=== PATIENT | female | born 2000 ===

== ENCOUNTER 2025-02-13 19:06 | Emergency (ER) | payer SELFPAY ==
[2025-02-13 19:09] VITALS: BP 146/102; PULSE 85; RESP 18; TEMP 37; O2SAT 100
--- NOTE | 2025-02-13 19:17 | PC.NURSE ---
Pt and visitor are ambulatory to triage desk with steady gait stating they are going to go to [place] instead per cosmetics counter manager Charla. Pt walked out before being seen by provider.
== END 2025-02-13 19:17 | disposition left against medical advice (07) ==
DX: R11.2 Nausea with vomiting, unspecified (principal)
CPT/HCPCS: 99199

== ENCOUNTER 2025-02-13 19:52 | Emergency (ER) | payer OTHER, SELFPAY ==
[2025-02-13 19:56] VITALS: BP 118/104; PULSE 80; RESP 20; TEMP 36.5; O2SAT 100
[2025-02-13] MEDS: LORazepam INJ (*CRX) 2 MG/ML VIAL 1 MG IV PUSH (20:12)
[2025-02-13] MEDS: diphenhydrAMINE HCl INJ 50 MG/ML VIAL IV PUSH (20:12)
[2025-02-13] MEDS: METOCLOPRAMIDE HCL INJ 10 MG/2 ML VIAL IV PUSH (20:12)
[2025-02-13] MEDS: SODIUM CHLORIDE 0.9% IV 1,000 ML 999 ML IRRIGATION (20:13)
--- NOTE | 2025-02-13 20:35 | ED.NAVMDI ---
HPI - Nausea/Vomiting/Diarrhea General Chief complaint: Nausea/Vomiting/Diarrhea Stated complaint: n/v/d Time Seen by Provider: 02/13/25 20:34 Source: patient Mode of arrival: ambulatory Limitations: no limitations History of Present Illness HPI Narrative: 24 years old white female came to the ED by private car with her boyfriend who is telling me that patient start have nonstop vomiting after lunch. Up is telling me that he ate the same food. History of cyclic vomiting syndrome. Patient denies any fever, chills, diarrhea, constipation or urinary symptoms. Related Data Allergies Allergy/AdvReac Type Severity Reaction Status Date / Time alcohol Allergy Intermediate Nausea and Verified 02/13/25 19:08 Vomiting Review of Systems Review of Systems: All systems reviewed & are unremarkable except as noted in HPI and below Exam Narrative: General appearance: Well-developed, well-nourished , dry heaving Skin: Normal color Head: Normocephalic, nontraumatic Eyes: Clear conjunctiva ENT: Oropharynx normal, ears normal, nose normal Neck: Supple, nontender Chest and respiratory: Airway patent, no respiratory distress, no accessory muscle use Heart: Regular rate/rhythm Abdomen: Soft, nontender, no organomegaly, quiet bowel sounds Vascular: Normal peripheral pulses, normal capillary refill. Musculoskeletal: Normal range of motion, nontender back Neurologic: Alert and oriented ?3, [employer] is normal as tested, no gross motor deficit Course Vital Signs Vital signs: Vital Signs Temperature 36.5 C 02/13/25 19:56 Pulse Rate 80 02/13/25 19:56 Respiratory Rate 20 02/13/25 19:56 Blood Pressure 118/104 H 02/13/25 19:56 Pulse Oximetry 100 02/13/25 19:56 Oxygen Delivery Room Air 02/13/25 19:56 Temperature 36.6 C 02/13/25 22:30 Pulse Rate 80 02/13/25 22:30 Respiratory Rate 18 02/13/25 22:30 Blood Pressure 126/72 02/13/25 22:30 Pulse Oximetry 97 02/13/25 22:30 Oxygen Delivery Room Air 02/13/25 22:30 MDM - Nausea/Vomiting/Diarrhea MDM Narrative Medical decision making narrative: differential diagnosis cyclic vomiting syndrome, dehydration, electrolyte imbalance Blood workup today includes CBC, CMP, lipase showed WBC 11.4, otherwise insignificant abnormalities Urinalysis showed patient was not able to provide urine prior to discharge patient's symptoms resolved after IV fluid, Reglan, Benadryl and Ativan. Diagnosis cyclic vomiting syndrome Discharged on Phenergan suppository Differential Diagnosis Differential diagnosis: Likely gastroenteritis, drug-induced nausea and vomiting, dehydration and other ( cyclic vomiting syndrome, anxiety like symptoms) Medical Records Attestation: I reviewed the patient's medical records. Lab Data Attestation: I reviewed the patient's lab results. 02/13/25 21:38 02/13/25 21:38 Labs: Lab Results 02/13/25 Range/Units 21:38 WBC 11.4 H (4.8-10.8) K/mm3 RBC 4.82 (4.20-5.40) M/mm3 Hgb 13.6 (12.0-15.0) g/dL Hct 41.4 (35.0-49.0) % MCV 85.9 (78.0-102.0) fL MCH 28.2 (27.0-31.0) pg MCHC 32.9 (32-36) g/dL RDW 12.3 (11.6-14.4) % Plt Count 374 (150-420) K/mm3 MPV 9.6 (9.2-11.8) fl Immature Gran % (Auto) 0.5 H (0.0-0.0) % Neut % (Auto) 90.1 H (50.0-70.0) % Lymph % (Auto) 6.3 L (18.0-42.0) % [place] % (Auto) 2.5 (2.0-11.0) % Eos % (Auto) 0.3 L (1.0-6.0) % Baso % (Auto) 0.3 (0.0-1.0) % Lymph # (Auto) 0.72 L (1.10-4.50) K/mm3 [place] # (Auto) 0.29 (0.10-0.90) K/mm3 Eos # (Auto) 0.03 (0.02-0.50) K/mm3 Baso # (Auto) 0.04 (0.00-0.10) K/mm3 Abs Immat Gran (auto) 0.06 H (0.00-0.00) K/mm3 Absolute Neuts (auto) 10.30 H (1.70-7.20) K/mm3 Absolute Nucleated RBC 0.00 (0.00-0.00) K/mm3 Nucleated RBC % 0.0 (0-0.0) % Sodium 139 (137-145) mmol/L Potassium 3.6 (3.4-5.0) mmol/L Chloride 111 H (98-107) mmol/L Carbon Dioxide 20 L (22-30) mmol/L Anion Gap 8 (4-12) mmol/L BUN 11 (7-17) mg/dL Creatinine 0.65 L (0.7-1.0) mg/dL Estim Creat Clear Calc 98 ml/min Estimated GFR > 60 (59 - ) Glucose 111 H (65-110) mg/dL Calculated Osmolality 288 (285-295) mOsm/kg Calcium 8.6 (8.4-10.2) mg/dL Total Bilirubin 1.2 (0.2-1.3) mg/dL AST 25 (14-36) U/L ALT 19 (6-35) U/L Alkaline Phosphatase 61 (38-126) U/L Total Protein 7.4 (6.3-8.2) g/dL Albumin 4.5 (3.5-5.1) g/dL Critical Care Time Critical Care Time Critical Care Time: No Discharge Plan Discharge Clinical Impression: Cyclical vomiting, intractable Patient Disposition: Home Condition: Improved Instructions: Acute Nausea and Vomiting (ED) Additional Instructions: Return if symptoms are worsening , call your family physician for appointment, take Tylenol as as needed for aches and pain, continue home medications. Patient Language: Bulgarian Prescriptions: New promethazine 25 mg suppository 25 mg RECTAL Q6H PRN (Reason: nausea and vomiting) Qty: 12 0RF Follow-up/Referrals: UNKNOWN,DOCTOR [Non-Staff] -
[2025-02-13 21:34] VITALS: BP 112/72; PULSE 85; RESP 18; O2SAT 98
[2025-02-13 21:37] LABS: Basophils Absolute Auto 0.04 K/mm3 (0.00-0.10); Basophils Percent Auto 0.3 % (0.0-1.0); Eosinophils Absolute Auto 0.03 K/mm3 (0.02-0.50); Eosinophils Percent Auto 0.3 % (1.0-6.0); Hematocrit 41.4 % (35.0-49.0); Hemoglobin 13.6 g/dL (12.0-15.0); Immature Granulocyte Absolute 0.06 K/mm3 (0.00-0.00); Immature Granulocyte Percent A 0.5 % (0.0-0.0); Lymphocytes Absolute Auto 0.72 K/mm3 (1.10-4.50); Lymphocytes Percent Auto 6.3 % (18.0-42.0); Mean Corpuscular HGB Conc 32.9 g/dL (32-36); Mean Corpuscular Hemoglobin 28.2 pg (27.0-31.0); Mean Corpuscular Volume 85.9 fL (78.0-102.0); Mean Platelet Volume 9.6 fl (9.2-11.8); Monocytes Absolute Auto 0.29 K/mm3 (0.10-0.90); Monocytes Percent Auto 2.5 % (2.0-11.0); Neutrophils Percent Auto 90.1 % (50.0-70.0); Platelet Count Result 374 K/mm3 (150-420); Red Blood Count 4.82 M/mm3 (4.20-5.40); Red Cell Distribution Width 12.3 % (11.6-14.4); White Blood Count 11.4 K/mm3 (4.8-10.8)
[2025-02-13 21:50] LABS: Alanine Aminotransferase 19 U/L (6-35); Albumin Level 4.5 g/dL (3.5-5.1); Alkaline Phosphatase 61 U/L (38-126); Anion Gap 8 mmol/L (4-12); Aspartate Amino Transferase 25 U/L (14-36); Bilirubin,Total 1.2 mg/dL (0.2-1.3); Blood Urea Nitrogen 11 mg/dL (7-17); Calcium 8.6 mg/dL (8.4-10.2); Carbon Dioxide 20 mmol/L (22-30); Chloride 111 mmol/L (98-107); Estimated CRCL calculation 98 ml/min; Estimated Glomerular Filt Rate > 60; Glucose 111 mg/dL (65-110); Osmolality Calculated 288 mOsm/kg (285-295); Potassium 3.6 mmol/L (3.4-5.0); Sodium 139 mmol/L (137-145); Total Protein 7.4 g/dL (6.3-8.2)
--- NOTE | 2025-02-13 21:53 | PC.NURSE ---
Pt sleeping, awakens to voice and stimuli, reports she is feeling better. Boyfriend at bedside.
--- OUTSIDE RECORDS SUMMARY | 2025-02-13 22:06 | XMS_ITS | Data Portability ---
Author Organization [facility], [facility] Address [address] [place] [address] Care Team Providers Care Lumber Buyer Name Role Phone CECELIA ELAINE Primary Care Provider Assessment No assessment recorded. Plan of Treatment Reminders Order Date Submit Date Provider Last Modified By Organization Details Last Modified Time Details Appointments None recorded. Lab anaplasma phagocyto philum + ehrlichia chaffeens is IgG + IgM panel, serum 2024 025 [employer], [address] [place] [address], [id number], 5 21:08:41 borrelia burgdorfe ri IgG + IgM + total panel, IA, serum 2024 025 [employer], [address] [place] [address], [id number], 5 10:54:59 galactose -alpha-1, 3-galacto se panel, serum or plasma 2024 025 [employer], [address] [place] [address], [id number], 5 01:07:49 anaplasma phagocyto philum + ehrlichia chaffeens is IgG panel, titer, serum 2024 025 [employer], [address] [place] [address], [id number], 5 16:12:36 rickettsi a spotted fever group Ab.IgG + IgM panel, titer, serum 2024 [place] [employer] [facility], [facility] [place], [address], 22:08:14 Referral None recorded. Procedures None recorded. Surgeries None recorded. Imaging holter monitor 2023 024 [facility] (Imaging), [address] [place] [address], [address], 4 01:32:40 Medication Orders duloxetin e 60 mg capsule,d elayed release 2024 025 [facility]/Pharmacy #[id number], [address] [place], [address], 10:55:00 hydroxyzi ne HCl 25 mg tablet [address]/Pharmacy #[id number], [address] [place], [address], 15:09:07 Cymbalta 30 mg capsule,d elayed release [address]/Pharmacy #[id number], [address] [place], [address], 5 15:09:07 hydroxyzi ne HCl 25 mg tablet 2023 024 [email or web address] [facility]/Pharmacy #[id number], [address] [place], [address], 14:16:19 Patient TargetsNo targets recorded. Patient Instructions Encounter Date Encounter Id Patient Instructions Last Modified By Organization Details Last Modified Time 06/15/2024 [id number] Screening, Brief Intervention, and Referral to Treatment* Not available 06/15/2024 18:28:52 10/20/2024 [id number] Screening, Brief Intervention, and Referral to Treatment* Not available 10/20/2024 17:56:48 A healthy lifestyle: care instructions Not available 10/20/2024 17:56:48 un estilo de vid a bill: instrucciones de cuidado - [A healthy lifestyle: care instructions] Not available 10/20/2024 17:56:48 exercise [email or web address] Not available 2024 17:56:48 nutrition [email or web address] Not available 2024 17:56:48 11/02/2024 [id number] Screening, Brief Intervention, and Referral to Treatment* Not available 11/02/2024 14:39:36 A healthy lifestyle: care instructions Not available 11/02/2024 14:39:36 un estilo de vid a bill: instrucciones de cuidado - [A healthy lifestyle: care instructions] Not available 11/02/2024 14:39:36 exercise [email or web address] Not available 2024 14:39:36 nutrition [email or web address] Not available 2024 14:39:36 11/30/2024 [id number] Screening, Brief Intervention, and Referral to Treatment* Not available 11/30/2024 11:43:34 A healthy lifestyle: care instructions Not available 11/30/2024 11:43:34 un estilo de vid a bill: instrucciones de cuidado - [A healthy lifestyle: care instructions] Not available 11/30/2024 11:43:34 exercise [email or web address] Not available 2024 11:43:34 nutrition [email or web address] Not available 2024 11:43:34 Reason for Referral None Reported. Results Created Date Observation Date Name Description Value Unit Range Abnormal Flag Note LastModifiedBy Organization Detail LastModifiedTime 10/15/19 24 10/15/2023 VERIT OR FLU A/B WAIVE D influenza A NEGATI VE negati ve Not Available [facility] [address], [address], 10/15/2023 10:27:33 10/15/19 24 10/15/2023 VERIT OR FLU A/B WAIVE D influenza B NEGATI VE negati ve If the test is negat mateo for the prese nce of influ kelley A or influ kelley B antig en, infec tion due to influ kelley canno t be ruled -out becau se the antig en prese nt in the sampl e may be below the detec tion limit of the test. It is recom anatoly d that these resul ts be confi rmed by viral cultu re or an FDA-c leare d influ kelley A and B molec ular assay . Not Available [facility]obhilda_vern medel [address] [place] [address], [address], 10/15/2023 10:27:33 06/15/20 24 06/15/2024 Cindy damico, Brief Inter venti on, and Refer ral to Treat ment* In the past 2 weeks, have you felt nervous, anxious, or on edge? Not at all Not Available [facility] [address] [place], [address], 06/15/2024 15:49:29 06/15/20 24 06/15/2024 Cindy damico, Brief Inter venti on, and Refer ral to Treat ment* In the past 2 weeks, have you been unable to stop or control worrying? Not at all Not Available [facility] [address] [place], [address], 06/15/2024 15:49:29 06/15/20 24 06/15/2024 Cindy damico, Brief Inter venti on, and Refer ral to Treat ment* How many times in the last year have you used drugs/prescr iption meds for non-medical reasons? None Not Available [facility] [address] [place], [address], 06/15/2024 15:49:29 06/15/20 24 06/15/2024 Scree mookie, Brief Inter venti on, and Refer ral to Treat ment* How many times in the past year have you had 4 drinks in 1 day? 0 Not Available [facility] [address] [place], [address], 06/15/2024 15:49:29 06/15/20 24 06/15/2024 Screhenri rochag, Brief Inter venti on, and Refer ral to Treat ment* Positive or Negative? negati ve Not Available [facility] [address] [place], [address], 06/15/2024 15:49:29 06/15/20 24 06/15/2024 Cindy damico, Brief Inter venti on, and Refer ral to Treat ment* BH Referral? Not needed at this time Not Available [facility] [address] [place], [address], 06/15/2024 15:49:29 10/21/19 25 10/20/2024 Cindy damico, Brief Inter venti on, and Refer ral to Treat ment* In the past 2 weeks, have you felt nervous, anxious, or on edge? Not at all Not Available [facility] [address] [place], [address], 10/20/2024 14:12:48 10/21/19 25 10/20/2024 Cindy damico, Brief Inter venti on, and Refer ral to Treat ment* In the past 2 weeks, have you been unable to stop or control worrying? Not at all Not Available [facility] [address] [place], [address], 10/20/2024 14:12:48 10/21/19 25 10/20/2024 Cindy rochag, Brief Inter venti on, and Refer ral to Treat ment* How many times in the last year have you used drugs/prescr iption meds for non-medical reasons? None Not Available [facility] [address] [place], [address], 10/20/2024 14:12:48 10/21/19 25 10/20/2024 Scree mookie, Brief Inter venti on, and Refer ral to Treat ment* How many times in the past year have you had 4 drinks in 1 day? 0 Not Available [facility] [address] [place], [address], 10/20/2024 14:12:48 10/21/19 25 10/20/2024 Screhenri rochag, Brief Inter venti on, and Refer ral to Treat ment* Positive or Negative? negati ve Not Available [facility] [address] [place], [address], 10/20/2024 14:12:48 10/21/19 25 10/20/2024 Screhenri rochag, Brief Inter venti on, and Refer ral to Treat ment* BH Referral? Not needed at this time Not Available [facility] [address] [place], [address], 10/20/2024 14:12:48 11/03/19 25 11/02/2024 EHRLI JOSH AB PANEL result comment: COMMEN T Antib nurys titer s may be negat mateo in the first 7-10 days of illne ss. A four- fold rise in IgG antib nurys titer s for Anapl asma phago cytop hilum and/o r Ehrli josh chaff eensi s in paire d sampl es (acut e and conva lesce nt) suppo rts the diagn osis of anapl asmos is and/o r ehrli chios is, respe ctive ly. Not Available [facility] ([facility]) [address] [facility], [place], [address], 11/04/2024 21:08:40 11/03/19 25 11/04/2024 EHRLI JOSH AB PANEL E. chaffeensis IgM NEGATI VE neg:<1 :20 Not Available [facility] ([facility]) [address] [facility], [place], [address], 11/04/2024 21:08:40 11/03/1911/04/2024 CHYNA JOSH AB PANEL A. phagocytophi lum IgM NEGATI VE neg:<1 :20 Due to a reage nt backo rder, this test was perfo rmed using a diffe rent assay . The refer ence inter khoa for this alter dennis assay is: Negat mateo <1:64 Posit mateo 1:64 or great er Not Available [facility] ([facility]) [address] [facility], [place], [address], 11/04/2024 21:08:40 11/03/19 25 11/02/2024 SPOTT ED FEVER GROUP ANTIB ODIES result comment: COMMEN T Spott ed Fever Group IgG serum endpo int titer of >=1:6 4 is sugge stive of infec tion at an unkno wn time and may be a sign of eithe r past infec tion or early respo nse to a recen t infec tion. Spott ed Fever Group IgM titer of >=1:6 4 is regar ded as proba ble evide nce of recen t or ongoi ng infec tion. A four- fold or great er incre ase in titer betwe en two serum sampl es drawn 1-2 weeks apart and teste d in paral lel is the best serol ogic indic ator of a recen t ricke ttsia l infec tion. Not Available [facility] ([facility]) [address] [facility], [place], [address], 11/04/2024 22:08:14 11/03/19 25 11/04/2024 SPOTT ED FEVER GROUP ANTIB ODIES spotted fever group IgG <1:64 neg:<1 :64 Not Available [facility] ([facility]) [address] [facility], [place], [address], 11/04/2024 22:08:14 11/03/19 25 11/04/2024 SPOTT ED FEVER GROUP ANTIB ODIES spotted fever group IgM <1:64 neg:<1 :64 Not Available [facility] ([facility]) [address] [facility], [place], [address], 11/04/2024 22:08:14 11/03/19 25 11/02/2024 TICK- BORNE DISEA SE AB PROFI LE result comments: COMMEN T Antib nurys titer s may be negat mateo in the first 7-10 days of illne ss. A four- fold rise in IgG antib nurys titer s for Babes ia micro ti, Anapl asma phago cytop hilum , and/o r Ehrli josh chaff eensi s in paire d sampl es (acut e and conva lesce nt) suppo rts the diagn osis of babes iosis , anapl asmos is, and/o r ehrli chios is, respe ctive ly. Not Available [facility] ([facility]) [address] [facility], [place], [address], 11/07/2024 16:12:36 11/03/19 25 11/03/2024 TICK- BORNE DISEA SE AB PROFI LE lyme total antibody thais NEGATI VE negati ve Lyme antib odies not detec paulina. Refle x testi ng is not indic ated. No labor atory evide nce of infec tion with B. burgd orfer i (Lyme disea se). Negat mateo resul ts may occur in patie nts recen tly infec paulina (less than or equal to 14 days) with B. burgd orfer i. If recen t infec tion is suspe cted, repea t testi ng on a new sampl e colle cted in 7 to 14 days is recom anatoly d. Not Available [facility] ([facility]) [address] [facility], [place], [address], 11/07/2024 16:12:36 11/03/19 25 11/04/2024 TICK- BORNE DISEA SE AB PROFI LE E. chaffeensis IgG NEGATI VE neg:<1 :64 Not Available [facility] ([facility]) [address] [facility] [place], [address], 11/07/2024 16:12:36 11/03/19 25 11/04/2024 TICK- BORNE DISEA SE AB PROFI LE A. phagocytophi lum IgG NEGATI VE neg:<1 :64 Not Available [facility] ([facility]) [address] [facility] [place], [address], 11/07/2024 16:12:36 11/03/1911/07/2024 TICK- BORNE DISEA SE AB PROFI LE babesia microti IgG <1:10 neg:<1 :10 Not Available [facility] ([facility]) [address] [facility], [place], [address], 11/07/2024 16:12:36 11/03/1911/02/2024 ALPHA -GAL IGE PANEL class description COMMEN T Level s of Speci fic IgE Class Descr iptio n of Class ----- ----- ----- ----- ----- -- ----- ----- ----- ----- ----- < 0.10 0 Negat mateo 0.10 - 0.31 0/I Equiv ocal/ Low 0.32 - 0.55 I Low 0.56 - 1.40 II Moder ate 1.41 - 3.90 III High 3.91 - 19.00 IV Very High 19.01 - 100.0 0 V Very High >100. 00 Very High Not Available [facility] ([facility]) [address] [facility] [place], [address], 11/11/2024 01:07:49 11/03/1911/11/2024 ALPHA -GAL IGE PANEL immunoglobul in E, total <2 IU/mL 6-495 below low normal Not Available [facility] ([facility]) [address] [facility] [place], [address], 11/11/2024 01:07:49 11/03/19 25 11/11/2024 ALPHA -GAL IGE PANEL [id number]-NxW pork <0.10 kU/L class 0 Not Available [facility] ([facility]) [address] [facility], [place], [address], 11/11/2024 01:07:49 11/03/19 25 11/11/2024 ALPHA -GAL IGE PANEL N529-NaE beef <0.10 kU/L class 0 Not Available [facility] ([facility]) [address] [facility], [place], [address], 11/11/2024 01:07:49 11/03/19 25 11/11/2024 ALPHA -GAL IGE PANEL E007-SzN mendez <0.10 kU/L class 0 Not Available [facility] ([facility]) [address] [facility], [place], [address], 11/11/2024 01:07:49 11/03/19 25 11/11/2024 ALPHA -GAL IGE PANEL D122-UdL alpha-gal <0.10 kU/L class 0 Not Available [facility] ([facility]) [address] [facility], [place], [address], 11/11/2024 01:07:49 11/03/19 25 11/02/2024 Cindy damico, Brief Inter venti on, and Refer ral to Treat ment* In the past 2 weeks, have you felt nervous, anxious, or on edge? Not at all Not Available [facility] [address] [place], [address], 11/02/2024 14:31:55 11/03/19 25 11/02/2024 Cindy damico, Brief Inter venti on, and Refer ral to Treat ment* In the past 2 weeks, have you been unable to stop or control worrying? Not at all Not Available [facility] [address] [place], [address], 11/02/2024 14:31:55 11/03/19 25 11/02/2024 Cindy rochag, Brief Inter venti on, and Refer ral to Treat ment* How many times in the last year have you used drugs/prescr iption meds for non-medical reasons? None Not Available [facility] [address] [place], [address], 11/02/2024 14:31:55 11/03/19 25 11/02/2024 Cindy damico, Brief Inter venti on, and Refer ral to Treat ment* How many times in the past year have you had 4 drinks in 1 day? 0 Not Available [facility] [address] [place], [address], 11/02/2024 14:31:55 11/03/19 25 11/02/2024 Cindy damico, Brief Inter venti on, and Refer ral to Treat ment* Positive or Negative? negati ve Not Available [facility] [address] [place], [address], 11/02/2024 14:31:55 11/03/19 25 11/02/2024 Cindy damico, Brief Inter venti on, and Refer ral to Treat ment* BH Referral? Not needed at this time Not Available [facility] [address] [place], [address], 11/02/2024 14:31:55 12/01/19 25 11/30/2024 Cindy damico, Brief Inter venti on, and Refer ral to Treat ment* In the past 2 weeks, have you felt nervous, anxious, or on edge? Not at all Not Available [facility] [address] [place], [address], 11/30/2024 10:31:40 12/01/19 25 11/30/2024 Cindy damico, Brief Inter venti on, and Refer ral to Treat ment* In the past 2 weeks, have you been unable to stop or control worrying? Not at all Not Available [facility] [address] [place], [address], 11/30/2024 10:31:40 12/01/19 25 11/30/2024 Screhenri damico, Brief Inter venti on, and Refer ral to Treat ment* How many times in the last year have you used drugs/prescr iption meds for non-medical reasons? None Not Available [facility] [address] [place], [address], 11/30/2024 10:31:40 12/01/19 25 11/30/2024 Screhenri damico, Brief Inter venti on, and Refer ral to Treat ment* How many times in the past year have you had 4 drinks in 1 day? 0 Not Available [facility] [address] [place], [address], 11/30/2024 10:31:40 12/01/19 25 11/30/2024 Cindy damico, Brief Inter venti on, and Refer ral to Treat ment* Positive or Negative? negati ve Not Available [facility] [address] [place], [address], 11/30/2024 10:31:40 12/01/19 25 11/30/2024 Cindy damico, Brief Inter venti on, and Refer ral to Treat ment* BH Referral? Not needed at this time Not Available [facility] [address] [place], [address], 11/30/2024 10:31:40 10/15/19 24 10/15/2023 CT, abdom en + pelvi s, w/ contr ast No observ ation record ed. [email or web address] [facility] [address] [facility] [address], [place], [address], 10/15/2023 17:19:25 10/16/19 24 10/16/2023 , gallb ladde r No observ ation record ed. [address], [place], [address], 10/16/2023 17:44:48 10/16/19 24 10/16/2023 CT, abdom en + pelvi s, w/ contr ast No observ ation record ed. [address], [place], [address], 10/16/2023 17:44:48 07/07/20 24 06/24/2024 matthew r monit or No observ ation record ed. [facility] [address] [place] [address], [address], 07/11/2024 12:12:28 10/29/19 25 10/28/2024 XR, chest , 1 view No observ ation record ed. [address], [place], [address], 10/28/2024 17:30:03 10/29/19 25 10/28/2024 CT, abdom en + pelvi s, w/ contr ast No observ ation record ed. [address], [place], [address], 10/28/2024 17:30:03 Result Notes None recorded. Problems Name Problem SNOMED Code Status Onset Date Resolution Date Notes Provider Name and Address Organization Details Recorded Time Anxiety 26235854 Active 022 Cecelia Elaine MD [address] [place] [address], [address], [facility] 11:54:39 Problem Notes None recorded. Procedures Surgical History Date Name Laterality Status Provider Name and Address Organization Details Recorded Time extraction of wisdom tooth completed Yanely Cao CMA [facility] 10/15/2021 11:28:36 Imaging Results None recorded. Procedure Notes None recorded. Medical Equipment None Reported. Allergies No known drug allergies Medications Name Sig Start Date Stop Date Status Note LastModified by Organization Details LastModified Time clonidine HCl 0.1 mg tablet TAKE 1/2 OR 1 TABLET BY MOUTH NEEDED FOR ANXIETY active not taking 10/20/24 Not Available Not Available Not Available doxycyclin e hyclate 100 mg capsule TAKE 1 CAPSULE BY MOUTH TWICE A DAY 03/06 completed Not Available Not Available Not Available promethazi ne 12.5 mg tablet TAKE 1 TABLET BY MOUTH EVERY 6 HOURS NEEDED FOR NAUSEA OR VOMITING . 03/06 completed Not Available Not Available Not Available ondansetro n HCl 4 mg tablet TAKE 1 TABLET BY MOUTH EVERY 6 HOURS. active not taking 10/20/24 Not Available Not Available Not Available metronidaz ole 500 mg tablet active Not Available Not Available Not Available doxepin 10 mg capsule TAKE 1 TO 2 TABLETS EVERY NIGHT AT BEDTIME 11/07 completed Not Available Not Available Not Available sulfametho xazole 800 mg-trimeth oprim 160 mg tablet TAKE 1 TABLET BY MOUTH EVERY 12 HOURS FOR 3 DAYS active not taking 10/20/24 Not Available Not Available Not Available lamotrigin e 25 mg tablet TAKE 1 TABLET BY MOUTH DAILY FOR 14 DAYS, THEN INCREASE TO 2 TABLETS BY MOUTH DAILY 03/06 completed Not Available Not Available Not Available terbinafin e HCl 250 mg tablet TAKE 1 TABLET BY MOUTH EVERY DAY active not taking 10/20/24 Not Available Not Available Not Available propranolo l 10 mg tablet TAKE 1 TABLET BY MOUTH DAILY NEEDED FOR ACUTE ANXIETY 10/15 completed Not Available Not Available Not Available famotidine 20 mg tablet TAKE 1 TABLET BY MOUTH TWICE A DAY active not taking 10/20/24 Not Available Not Available Not Available dicyclomin e 20 mg tablet Take 1 tablet 4 times a day by oral route as needed. active Not Available Not Available No t Available phenazopyr idine 100 mg tablet TAKE 1 TABLET BY MOUTH THREE TIMES DAILY NEEDED FOR DISCOMFO RT active not taking 10/20/24 Not Available Not Available Not Available promethazi ne 25 mg tablet TAKE 1 TABLET BY MOUTH EVERY 8 HOURS NEEDED FOR NAUSEA AND VOMITING active not taking 10/20/24 Not Available Not Available Not Available sertraline 25 mg tablet TAKE 1 TABLET BY MOUTH EVERY DAY 11/07 completed Not Available Not Available Not Available hydroxyzin e HCl 25 mg tablet TAKE 1 TABLET 3 TIMES A DAY BY ORAL ROUTE. active Not Available Not Available No t Available gabapentin 100 mg capsule 1 CAPSULE BY MOUTH DAILY IF NEEDED FOR ACUTE ANXIETY 11/07 completed Not Available Not Available Not Available Promethega n 25 mg rectal suppositor y 1 (ONE) SUPPOSIT ORY, RECTAL EVERY 12 HOURS, NEEDING FOR SEVERE NAUSEA AND VOMITING active not taking 10/20/24 Not Available Not Available Not Available lorazepam 1 mg tablet TAKE 1 TAB EVERY 8 HRS NEEDED FOR PANIC SYMPTOMS 11/07 completed Not Available Not Available Not Available levofloxac in 500 mg tablet active Not Available Not Available Not Available levofloxac in 750 mg tablet active not taking 10/20/24 Not Available Not Available Not Available methylpred nisolone 4 mg tablets in a dose pack Take 1 dose pk every day by oral route as directed . active not taking 10/20/24 Not Available Not Available Not Available haloperido l 2 mg tablet PLEASE SEE ATTACHED FOR DETAILED DIRECTIO NS 03/06 completed Not Available Not Available Not Available ondansetro n 4 mg disintegra ting tablet TAKE 1 TABLET (4 MG TOTAL) BY MOUTH EVERY 6 (SIX) HOURS NEEDED FOR NAUSEA OR VOMITING active Not Available Not Available No t Available fluoxetine 20 mg capsule TAKE 1 CAPSULE BY MOUTH EVERY DAY IN THE MORNING 10/15 completed Not Available Not Available Not Available sertraline 50 mg tablet TAKE 1 TABLET BY MOUTH EVERY DAY 11/07 completed Not Available Not Available Not Available medroxypro gesterone 150 mg/mL intramuscu lar suspension Inject 1 mL every 3 months by intramus cular route. 2021 active not taking 10/20/24 Not Available Not Available Not Available lamotrigin e 100 mg tablet TAKE 1 TABLET BY MOUTH EVERY DAY active not taking 10/20/24 Not Available Not Available Not Available metoclopra mide 10 mg tablet TAKE ONE TABLET BY MOUTH THREE TIMES A DAY NEEDED FOR NAUSEA FOR UP TO 4 DAYS active Not Available Not Available No t Available oxycodone 5 mg tablet TAKE 1 TABLET (5 MG TOTAL) BY MOUTH EVERY 8 (EIGHT) HOURS NEEDED FOR SEVERE PAIN FOR UP TO 3 DAYS active not taking 10/20/24 Not Available Not Available Not Available hydroxyzin e pamoate 25 mg capsule TAKE 1 CAPSULE BY MOUTH EVERYDAY AT BEDTIME active not taking 10/20/24 Not Available Not Available Not Available Depo-Prove ra 150 mg/mL intramuscu lar syringe Inject 1 mL every 3 months by intramus cular route. 2022 active not taking 10/20/24 Not Available Not Available Not Available duloxetine 30 mg capsule,de layed release TAKE 1 CAPSULE BY MOUTH EVERY DAY active Not Available Not Available No t Available duloxetine 60 mg capsule,de layed release TAKE 1 CAPSULE BY MOUTH EVERY DAY 2024 active Not Available Not Available Not Avai lable Xifaxan 550 mg tablet Take 1 tablet twice a day by oral route for 14 days. active not taking 10/20/24 Not Available Not Available Not Available naloxone 4 mg/actuati on nasal spray PLEASE SEE ATTACHED FOR DETAILED DIRECTIO NS active not taking 10/20/24 Not Available Not Available Not Available EluRyng 0.12 mg-0.015 mg/24 hr vaginal ring Insert 1 vaginal ring every month by vaginal route. active not taking 10/20/24 Not Available Not Available Not Available ID NOW COVID-19 Test Kit TEST DIRECTED TODAY 10/15 completed Not Available Not Available Not Available Vitals Date Recorded Body height Body mass index (BMI) Body weight Body temperature Heart rate Respiratory rate Oxygen saturation Oxygen saturation in Arterial blood by Pulse oximetry Systolic blood pressure Diastolic blood pressure Provider Name and Address Organization Details Last Updated DateTime 4 162.56 cm 23.9 kg/m2 49594.3 4 g 99.1 [degF] 86 /min 20 /min 98 % 98 % 111 mm[Hg] 79 mm[Hg] Sheron Mckay LPN [facility] 4 11:49:09 Date Recorded Body height Body mass index (BMI) Body weight Body temperature Respiratory rate Oxygen saturation Oxygen saturation in Arterial blood by Pulse oximetry Heart rate Systolic blood pressure Diastolic blood pressure Provider Name and Address Organization Details Last Updated DateTime 5 162.56 cm 26.6 kg/m2 08221.8 2 g 98 [degF] 18 /min 100 % 100 % 75 /min 135 mm[Hg] 89 mm[Hg] SHRUTHI Rushing [facility] 5 14:20:22 Date Recorded Body height Body mass index (BMI) Body weight Body temperature Oxygen saturation Oxygen saturation in Arterial blood by Pulse oximetry Heart rate Respiratory rate Systolic blood pressure Diastolic blood pressure Provider Name and Address Organization Details Last Updated DateTime 5 162.56 cm 25.7 kg/m2 06344.1 4 g 98 [degF] 99 % 99 % 111 /min 18 /min 119 mm[Hg] 81 mm[Hg] Michelle Barnettmonmilana MSMilana [facility] 5 14:34:10 Date Recorded Body height Body mass index (BMI) Body weight Body temperature Oxygen saturation Oxygen saturation in Arterial blood by Pulse oximetry Heart rate Respiratory rate Systolic blood pressure Diastolic blood pressure Provider Name and Address Organization Details Last Updated DateTime 5 162.56 cm 25.5 kg/m2 21484.8 3 g 98 [degF] 98 % 98 % 90 /min 18 /min 108 mm[Hg] 66 mm[Hg] Michelle Trevino MSMilana [facility] 5 10:33:12 Date Recorded Body height Body mass index (BMI) Body weight Respiratory rate Oxygen saturation Oxygen saturation in Arterial blood by Pulse oximetry Heart rate Body temperature Systolic blood pressure Diastolic blood pressure Provider Name and Address Organization Details Last Updated DateTime 4 162.56 cm 27.2 kg/m2 61800.9 9 g 18 /min 99 % 99 % 101 /min 98.1 [degF] 115 mm[Hg] 75 mm[Hg] [facility]za [facility] 4 15:51:28 Social History Question Answer Notes LastModified by Organizat ion Details LastModified Time Tobacco Smoking Status [facility] 11:26:10 What Is Your Level Of Caffeine Consumption? None [email or web address] Information not available 10/15/2021 Which Illicit Or Recreational Drugs Have You Used? MJ Information not available 10/15/2021 How Many Years Have You Used Illicit Or Recreational Drugs? 6 [email or web address] Information not available 10/15/2021 PRAPARE Screening Completed On: 11/30/2024 [email or web address] Information not available 11/30/2024 Are You Worried About Losing Your Housing? No [email or web address] Information not available 10/15/2021 In The Past Year Have You Or Any Of Your Family Members Been Unable To Get FOOD When It Was Really Needed? No [email or web address] Information not available 10/15/2021 In The Past Year Have You Or Any Of Your Family Members Been Unable To Get MEDICINE Or HEALTH CARE When It Was Really Needed? No Information not available 10/15/2021 Has Lack Of Transportation Kept You From Medical Appointments, Meetings, Work, Or From Getting Things Needed For Daily Living? No [email or web address] Information not available 10/15/2021 In The Past Year, Have You Been Afraid Of Your Partner Or Ex-partner? No [email or web address] Information not available 10/15/2021 Does The Patient Have Social Needs That Need To Be Addressed? No Information not available 10/15/2021 What Was The Date Of Your Most Recent Tobacco Screening? 11/30/2024 [email or web address] Information n ot available 11/30/2024 Has Tobacco Cessation Counseling Been Provided? No [email or web address] Information not available 10/15/2021 Have You Used IV Drugs? No [email or web address] Information not available 10/15/2021 How Many Years Have You Used E-cigarettes Or Vape? 5 [email or web address] Information not available 10/15/2021 Sex: Female Functional Status Question Answer Note LastModified by Organizat ion Details LastModified Time Do you use any illicit or recreational drugs? Yes [email or web address] Information not available 10/15/2021 Do you or have you ever used any other forms of tobacco or nicotine? No Information not available 03/06/2022 What is your level of alcohol consumption? None [email or web address] Information not available 10/15/2021 Do you or have you ever used smokeless tobacco? Never used smokeless tobacco [email or web address] Information not available 10/15/2021 Do you or have you ever used e-cigarettes or vape? Former user of electronic cigarettes Information not available 05/01/2022 Mental Status None recorded. Family History Relationship Description Onset Age of this Age Resolved Age Notes LastModified by Organization Details LastModified Time Paternal Grandfather Diabetes mellitus [email or web address] Not available 2021 11:24:01 Mother Hypertensive disorder [email or web address] Not available 2021 11:24:37 Medical History No medical history recorded. Gynecological History Statement/Question Response Flow Moderate Date of LMP 11/08/2024 Do you receive PASTRYC[employer] ASSISTANT Services within [facility]? N Have you had a Pap Smear within the last 3 or 5 years? 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 Y Desired Control Method None Obstetrics History GPAL:G 0 P 0 0 0 0 Immunizations Vaccine Type Date Status Note Provider Nam e and Address Organization Details Recorded Time Hib-Hep B 9 completed Not Available [facility] 11/30/2024 10:26:38 IPV 9 completed Not Available [facility] 11/30/2024 10:26:38 DTaP 9 completed Not Available [facility] 11/30/2024 10:26:38 DTaP 9 completed Not Available [facility] 11/30/2024 10:26:38 IPV 9 completed Not Available [facility] 11/30/2024 10:26:38 Hib-Hep B 9 completed Not Available [facility] 11/30/2024 10:26:38 Hib-Hep B 0 completed Not Available [facility] 11/30/2024 10:26:38 DTaP 0 completed Not Available [facility] 11/30/2024 10:26:38 DTaP 0 completed Not Available [facility] 11/30/2024 10:26:38 MMR 0 completed Not Available [facility] 11/30/2024 10:26:38 IPV 1 completed Not Available [facility] 11/30/2024 10:26:38 Hib-Hep B 1 completed Not Available [facility] 11/30/2024 10:26:38 varicella 2 completed Not Available [facility] 11/30/2024 10:26:38 MMR 3 completed Not Available [facility] 11/30/2024 10:26:38 DTaP 3 completed Not Available [facility] 11/30/2024 10:26:38 IPV 3 completed Not Available [facility] 11/30/2024 10:26:38 varicella 3 completed Not Available [facility] 11/30/2024 10:26:38 Tdap 3 completed Not Available [facility] 11/30/2024 10:26:38 HPV, unspecified formulation 3 completed Not Available [facility] 11/30/2024 10:26:38 meningococcal MCV4P 6 completed Not Available [facility] 11/30/2024 10:26:38 influenza, unspecified formulation 4 completed Not Available [facility] 11/30/2024 10:26:38 Past Encounters Encounter ID Performer Location Encounter Start Date Encounter Closed Date Diagnosis/Indication Diagnosis SNOMED-CT Code Diagnosis ICD10 Code Diagnosis Note [id number] Cecelia Elaine MD [facility] [address] [place] [address] 10/15/2021 11:06:49 10/16/2021 16:35:16 Screening for disorder 104729649 Z13.9 Normal weight 76112817 Z 68.22 Body Mass Index (BMI) 20.0-24.9, adult Dietary ma nagement surveillance 305670399 Z71.3 Exercises education, guidance, and counseling 433053189 Z71.82 Venereal d isease screening 558060365 Z11.3 Adult heal th examination 873750195 Z00.00 Will return for Pap, plans to talk with psychiatri st about getting small Rx of benzo to control anxiety and have exam completeRe questing records [facility] [id number] Cecelia Elaine MD [facility] [address] [place] [address] 11/06/2021 14:41:40 11/07/2021 11:31:44 Nausea and vomiting 71924997 R11.2 Likely viral gastroente ritisFluid s and anti emetics [id number] Cecelia Elaine MD [facility] [address] [place] [address] 01/23/2022 14:25:35 01/23/2022 15:42:45 Screening for disorder 463504083 Z13.9 Normal weight 48979870 Z 68.23 Body Mass Index (BMI) 20.0-24.9, adult Dietary ma nagement surveillance 290598937 Z71.3 Exercises education, guidance, and counseling 313705330 Z71.82 [facility] ion care management 397387798 Z30.9 Starting Depo todaywill have return in 4-6 weeks to retest for chlamydia and Pap [id number] MD LOBITO [facility] [address] [place] [address] 03/06/2022 09:51:33 03/06/2022 10:40:09 Screening for disorder 804922821 Z13.9 Normal weight 56169048 Z 68.22 Body Mass Index (BMI) 20.0-24.9, adult Dietary ma nagement surveillance 336819470 Z71.3 Exercises education, guidance, and counseling 202283550 Z71.82 Venereal d isease screening 020229721 Z11.3 Acute stress disorder 67 760551 F43.0 Panic symptoms when attempting to complete her PapWill send in small Rx of ativan for her to take prior to exam [id number] Cecelia Elaine MD [facility] [address] [place] [address] 05/01/2022 10:08:20 05/01/2022 14:36:20 Screening for disorder 551442511 Z13.9 Normal weight 71665483 Z 68.22 Body Mass Index (BMI) 20.0-24.9, adult Dietary ma nagement surveillance 133440924 Z71.3 Exercises education, guidance, and counseling 300776556 Z71.82 [facility] ion care management 565708225 Z30.9 Screening for malignant neoplasm of cervix 806841521 Z12.4 [id number] MD Dena Crockett [address] [place] [address] 07/17/2022 10:31:01 07/17/2022 12:28:08 Contraception care management 710149401 Z30.9 [id number] MD Dena Crockett [address] [place] [address] 10/07/2022 10:48:26 10/07/2022 16:40:19 Surveillance of depot contraception done 8431378682 9104 Z30.42 Screening for Chlamydia trachomatis 997313704 Z11.8 [id number] MD LOBITO [facility] [address] [place] [address] 11/07/2022 10:34:38 11/07/2022 15:08:16 Screening for disorder 476471952 Z13.9 Temporoman dibular joint disorder 27324438 M26.609 Irritable bowel syndrome with diarrhea 182177899 K58.0 [facility] 646717009 Z30.9 [id number] Cecelia Elaine MD [facility] [address] [place] [address] 10/15/2023 09:00:55 10/15/2023 15:30:22 Nausea and vomiting 34182037 R11.2 Likely viral gastroente ritis vs cyclic vomiting syndromegi joel Morales in clinic, unable to keep anything doneWill plan to go back to ER for fluids Fever 467272390 R50.9 [id number] [facility] [address] [place] [address] 10/21/2023 11:25:56 10/22/2023 16:10:32 Acute stress disorder 69559915 F43.0 Discussed using hydroxyzin e as needed for acute stressful events. Cholelithi asis without obstruction 05827344 K80.20 offered referral to surgery, denies at this time and will return if having any persistent symptoms. [id number] MD Dena Crockett [address] [place] [address] 06/15/2024 15:39:17 06/20/2024 15:06:02 Screening for disorder 521818566 Z13.9 Body mass index 25-29 - overweight 140333220 Z68.27 Tachycardia 1687762 R00. 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 [id number] Cecelia Elaine MD [facility] [address] [place] [address] 11/02/2024 14:21:17 11/03/2024 11:32:10 Screening for disorder 525639554 Z13.9 Overweight 060378715 E66 .3 Body mass index 25-29 - overweight 165406729 Z68.25 Dietary ma nagement surveillance 379147309 Z71.3 Exercises education, guidance, and counseling 625239799 Z71.82 Tick bite 52061457 W57.X XXA getting labs today to rule out as cause for vomiting Cyclical v omiting syndrome 37242734 R11.15 discussed stopping marijuana to see if helps improve vomiting [id number] Cecelia Elaine MD [facility] [address] [place] [address] 11/30/2024 10:25:43 12/01/2024 07:36:50 Screening for disorder 831202904 Z13.9 Overweight 861818636 E66 .3 Body mass index 25-29 - overweight 547885734 Z68.25 Dietary ma nagement surveillance 084942413 Z71.3 Exercises education, guidance, and counseling 287885003 Z71.82 Mixed anxi ety and depressive disorder 141795333 F41.8 Will increase cymbalta to 60mgFollow up in 2 months Health Concerns Section Related Observation LastModified by Organization Detai ls LastModified Time None Recorded Concern Status LastModified by Organization Details LastModified Time None Recorded Advance Directives Directive None Recorded Payers Insurance Date Sequence Insurance Name Policy Number Policy Galindo Covered Member ID Galindo Member ID Guarantor Name 11/07/2022 1 [facility] (MEDICAID REPLACEMENT - HMO) [id number] Char Mcknight [id number] Char Mcknight 11/27/2024 1 [id number] Char Mcknight [id number] Char Mcknight 11/02/2024 2 [place] [facility] Char Mcknight [id number] Char Mcknight Notes Date Note Type Note Provider Name and Address Organization Details Recorded Time 10/21/2023 text/html Here after recen t hospitalization. Was admitted for vomiting. Noted to have gallstones on CT and colitis. Admitted for multiple days. Now improved and tolerating PO. Had some concerns about treating depression and states her father stated she should get on Cymbalta. She feels she is doing well with her counselor. She does admitted to smoking marijuana daily, however states she could stop if needed to. Cecelia Elaine MD [address] [place] [address], [phone], [facility] 10/21/2023 14:00:24 06/15/2024 text/html Here with concer ns for elevated heart rate. States she has noticed her heart rate around 100-120 every day for a while. Denies feeling it elevated, denies SOB, no chest pain.Family hx of [place] in grandparents.curre ntly taking terbinafine, no other medications Cecelia Elaine MD [address] [place] [address], [phone], [facility] 06/15/2024 16:21:18 10/20/2024 text/html Anxiety/Depressi on Reported bypatient.Quality: symptoms worse during the day;symptoms are seasonal;increased anxiety Severity:denies suicidal ideations; able to maintain relationships;inte rference with work Context:no major life stressors Associated Symptoms:denies homicidal ideations; no significant weight gain; no significant weight loss; no visual/auditory hallucinations; no delusions; no shortness of breath;anxiety;res tlessness/agitatio n Here to discuss anxiety. Cecelia Elaine MD [address] [place] [address], [phone], [facility] 10/20/2024 15:49:07 11/02/2024 text/html Here to follow u p after ER visit for vomitingAt the time concern for cyclic vomiting syndrome due to MJShe also states she recently had a tick bitevomiting started after having mcdonald bryantburger Cecelia Elaine MD [address] [place] [address], [phone], [facility] 11/02/2024 15:12:04 11/30/2024 text/html Here to follow u p on anxiety/depression Doing well on Cymbalta. Symptoms have improved significantly, however still has some increased stress and anxiety occasionally. Cecelia Elaine MD [address] [place] [address], [phone], [facility] 11/30/2024 11:32:40 OBGyn Episode No OBEpisode recorded.
--- OUTSIDE RECORDS SUMMARY | 2025-02-13 22:06 | XMS_ITS | Clinical Summary ---
Author Organization [facility] Address [address] [place] [address] Care Team Providers Care [employer] Name Role Phone Cecelia Elaine MD Primary Care Provider [phone] Source Comments [facility],non-owned Affiliates and Associated Physician Practices is amultiple site organization consisting of ambulatory clinics and hospital sitesin [place], [place], [place] and [place]. This disclosure is being madepursuant to the Care Everywhere program and may not contain all information available regarding this patient. Last updated 18.[facility] Allergies No known active allergies Medications * This document contains information received from the source organization and may not represent a complete record from that organization. * Be aware that medications may not be up to date on this document. Alwaysverify current medications with the patient. LORazepam (Ativan) 1 MG tablet Take 1 (one) tablet by mouth every 8 hours as needed for Anxiety 2 tablet 02/24/20 23 Active metoclopramide (Reglan) 10 MG tablet Take 1 (one) tablet by mouth 3 times daily as needed for Nausea/Vomiting 15 tablet 01/17/20 25 Active promethazine (Phenergan) 25 MG suppository Insert 1 (one) suppository into the rectum every 6 hours as needed for Nausea/Vomiting 12 suppository 01/17/20 25 Active Active Problems Problem Noted Date Diagnosed Date Suicidal ideation 10/06/2021 Anxiety 10/06/2021 Cough 10/10/2013 Encounters Date Type Department Care Team Description 01/16/2025 5:59 AM CDT - 01/16/2025 11:44 AM CDT Emergency ER at [address] [address] Abimael Munroe DO Treaster, Matthew R, MD Polysubstance abuse (HCC) (Primary Dx); Nausea and vomiting, unspecified vomiting type Discharge Disposition: Home or Self Care 01/16/2025 Travel from Last 3 Months Social History Tobacco Use Types Packs/Day Years Used Date Smoking Tobacco: Never Smokeless Tobacco: Never Tobacco Cessation:Counseling Given: Not Answered Alcohol Use Standard Drinks/Week Comments No 0 (1 standard drink = 0.6 oz pur e alcohol) AUDIT-C Answer Date Recorded Q1: How often do you have a drink containing alcohol? Never 02/23/2023 Q2: How many drinks containi ng alcohol do you have on a typical day when you are drinking? Patient does not drink Q3: How often do you have si x or more drinks on one occasion? 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 Gender Identity Not on file Sexual Orientation Not on file Last Filed Vital Signs Vital Sign Reading Time Taken Comments Blood Pressure 137/115 01/16/2025 9:46 AM CDT Pulse 72 01/16/2025 10:00 AM CDT Temperature 37.3 C (99.1 F) 01/16/2025 5:53 AM CDT Respiratory Rate 20 01/16/2025 10:00 AM CDT Oxygen Saturation 99% 01/16/2025 10:00 AM CDT Inhaled Oxygen Concentration - - Weight 65.8 kg (145 lb) 01/16/2025 5:53 AM CDT Height 162.6 cm (5' 4) 01/16/2025 5:53 AM CDT Body Mass Index 24.89 01/16/2025 5:53 AM CDT Plan of Treatment Health Maintenance Due Date Last Done Comments HIV SCREENING 2014 HPV VACCINE (1 - 3-dose series) 2014 HEPATITIS C SCREENING 04/01/2017 DTAP/TDAP/TD VACCINES (1 - Tdap) 2018 HEPATITIS B VACCINE (1 of 3 - 19+ 3-dose series) 2018 PAP SMEAR 2020 CHLAMYDIA/GONORRHEA SCREENING 09/21/2021 09/21/2020 COVID-19 VACCINE (1 - 2023-2 5 season) 2024 DEPRESSION SCREENING 08/17/2024 ZOSTER VACCINE (1 of 2) 2049 INFLUENZA VACCINE Completed 06/07/2024 HIB VACCINE Aged Out No longer eligi ble based on patient's age to complete this topic MENINGOCOCCAL (Group B) VACC INE SHARED DECISION-MAKING Aged Out No longer eligibl e based on patient's age to complete this topic MENINGOCOCCAL GROUPS A/C/Y/W VACCINE Aged Out No longer eligible b ased on patient's age to complete this topic PNEUMOCOCCAL VACCINE Aged Out No long er eligible based on patient's age to complete this topic Procedures Procedure Name Priority Date/Time Associated Diagnosis Comments XR CHEST 1VW PORTABLE STAT 01/16/2025 10:01 AM CDT Nausea and vomiting, unspecified vomiting type LACTIC ACID BLOOD REFLEX TO REPEAT Timed STAT 01/16/2025 9:[address] ABDOMEN PELVIS W CONTRAST STAT 01/16/2025 9:17 AM CDT Nausea and vomiting, unspecified vomiting type TROPONIN-I HIGH SENSITIVE STAT 01/16/2025 6:29 AM CDT PT-INR STAT 01/16/2025 6:29 AM CDT MAGNESIUM BLOOD STAT 01/16/2025 6:29 AM CDT B-TYPE NATRIURETIC PEPTIDE STAT 01/16/2025 6:29 AM CDT URINALYSIS REFLEX MICROSCOPIC REFLEX CULTURE STAT 01/16/2025 6:29 AM CDT DRUG ABUSE URINE SCREEN 10 STAT 01/16/2025 6:29 AM CDT TSH REFLEX FREE T4 STAT 01/16/2025 6: 29 AM CDT ALCOHOL ETHYL BLOOD STAT 01/16/2025 6 :29 AM CDT LACTIC ACID BLOOD REFLEX TO REPEAT STAT 01/16/2025 6:29 AM CDT LIPASE BLOOD STAT 01/16/2025 6:29 AM CDT COMPREHENSIVE METABOLIC PANEL STAT 01/16/2025 6:29 AM CDT CBC W AUTO DIFFERENTIAL STAT 01/16/2025 6:29 AM CDT HCG BLOOD QUALITATIVE STAT 01/16/2025 6:29 AM CDT HCG URINE QUALITATIVE - POCT (IP) BEAKER - ILL STAT 01/16/2025 6:13 AM CDT EKG 12-LEAD STAT 01/16/2025 6:12 AM CDT Nausea and vomiting, unspecified vomiting type from Last 3 Months Results * XR CHEST 1VW PORTABLE (01/16/2025 10:01 AM CDT) Anatomical Region Laterality Modality Chest Computed Radiogr aphy 01/16/2025 10:4 7 AM CDT Impressions 01/16/2025 10:49 AM CDT IMPRESSION: No consolidation > Interpreting Provider: Bryn Mcnally MD on 01/16/2025 10:49 AM Narrative 01/16/2025 10:49 AM CDT XR CHEST 1VW PORTABLE INDICATION: R11.2: Nausea and vomiting, unspecified vomiting type. COMPARISON: 10/10/2013 FINDINGS: There is no consolidation, pleural effusion or pneumothorax. The heart size is normal. Procedure Note Bryn Mcnally MD - 01/16/2025 XR CHEST 1VW PORTABLE INDICATION: R11.2: Nausea and vomiting, unspecified vomiting type. COMPARISON: 10/10/2013 FINDINGS: There is no consolidation, pleural effusion or pneumothorax. The heart size is normal. IMPRESSION: No consolidation > Interpreting Provider: Bryn Mcnally MD on 01/16/2025 10:49 AM Abimael Munroe DO DIAGNOSTIC IMAGING ORDERABLE S Final Result * (ABNORMAL) LACTIC ACID BLOOD REFLEX TO REPEAT (01/16/2025 9:59 AM CDT) Only the most recent of2 resultswithin the time period is included. Lactic Acid 2.56(H) 0.5 - 2 mmol/L 01/16/2025 10:32 AM CDT [facility] Blood BLOOD SPECIMEN / Unknown Venipuncture / Unknown 01/16/2025 9:59 AM CDT 01/16/2025 10:03 AM CDT Abimael Munroe DO LAB - CHEMISTRY ORDERABLES F inal Result Performing Organization Address City/State/[facility] Co de Phone Number [facility] [address] * CT ABDOMEN AND PELVIS W IV CONTRAST [id number] (01/16/2025 9:17 AM CDT) Anatomical Region Laterality Modality Abdomen, Pelvis Computed Tomogra phy 01/16/2025 9:55 AM CDT Impressions 01/16/2025 9:57 AM CDT IMPRESSION: Hepatic steatosis > Interpreting Provider: Bryn Mcnally MD on 01/16/2025 9:57 AM Narrative 01/16/2025 9:57 AM CDT PROCEDURE: CT ABDOMEN PELVIS W CONTRAST DATE/TIME OF EXAM: 01/16/2025 9:17 AM CLINICAL INFORMATION: None relevant/not provided if blank. Indication: R11.2: Nausea and vomiting, unspecified vomiting type Additional History: COMPARISON: 10/09/2013 TECHNIQUE: CT of the abdomen and pelvis was performed following intravenous contrast utilizing standard protocol. CT dose reduction technique was used, including Automated Exposure Control. CONTRAST: IOPAMIDOL 61 % IV SOLN:89 mL FINDINGS: The lung bases are clear. There is fatty infiltration to the liver. The gallbladder is not visualized. The spleen and pancreas show no acute abnormalities. The adrenal glands are not enlarged. There is no obstructive uropathy. No abdominal aortic aneurysm is present. There is no bowel obstruction, free air, or free fluid. No pericecal inflammatory changes are present. The uterus is heterogeneous. Urinary bladder is partially distended. There is no acute osseous abnormality. Procedure Note Bryn Mcnally MD - 01/16/2025 PROCEDURE: CT ABDOMEN PELVIS W CONTRAST DATE/TIME OF EXAM: 01/16/2025 9:17 AM CLINICAL INFORMATION: None relevant/not provided if blank. Indication: R11.2: Nausea and vomiting, unspecified vomiting type Additional History: COMPARISON: 10/09/2013 TECHNIQUE: CT of the abdomen and pelvis was performed following intravenouscontrast utilizing standard protocol. CT dose reduction technique was used, including Automated ExposureControl. CONTRAST: IOPAMIDOL 61 % IV SOLN:89 mL FINDINGS: The lung bases are clear. There is fatty infiltration to the liver. The gallbladder is not visualized. The spleen and pancreas show no acute abnormalities. The adrenal glands are not enlarged. There is no obstructive uropathy. No abdominal aortic aneurysm is present. There is no bowel obstruction, free air, or free fluid. No pericecal inflammatory changes are present. The uterus isheterogeneous. Urinary bladder is partially distended. There is no acute osseous abnormality. IMPRESSION: Hepatic steatosis > Interpreting Provider: Bryn Mcnally MD on 01/16/2025 9:57 AM Bryn Estrada MD CT ORDERABLES Final Resu lt * TROPONIN-I HIGH SENSITIVE (01/16/2025 6:29 AM CDT) Troponin I High Sensitive <3 <=14 ng/L 01/16/2025 7:15 AM CDT [facility] Blood BLOOD SPECIMEN / Unknown Venipuncture / Unknown 01/16/2025 6:29 AM CDT 01/16/2025 6:41 AM CDT Abimael Munroe DO LAB - CHEMISTRY ORDERABLES F inal Result [facility] [address] [place] [address], [facility] * (ABNORMAL) DRUG ABUSE URINE SCREEN 10 (01/16/2025 6:29 AM CDT) [facility] Amphetamines Screen Urine Positive(A) Negative 01/16/2025 7:22 AM CDT [facility] Barbiturates Screen Urine Negative Negative 01/16/2025 7:22 AM CDT [facility] Benzodiazepines Screen Urine Negative Negative 01/16/2025 7:22 AM CDT [facility] Cannabinoids Screen Urine Positive(A) Negative 01/16/2025 7:22 AM CDT [facility] Cocaine Screen Urine Positive(A) Negative 01/16/2025 7:22 AM CDT [facility] Methadone Screen Urine Negative Negative 01/16/2025 7:22 AM CDT [facility] Opiate Screen Urine Negative Negative 01/16/2025 7:22 AM CDT [facility] Phencyclidine Screen Urine Negative Negative 01/16/2025 7:22 AM CDT [facility] Tricyclics Screen Urine Negative Negative 01/16/2025 7:22 AM CDT [facility] Methamphetamine Screen Urine Negative Negative 01/16/2025 7:22 AM CDT [facility] Buprenorphine Screen Urine Negative Negative 01/16/2025 7:22 AM CDT [facility] Oxycodone Screen Urine Negative Negative 01/16/2025 7:22 AM CDT [facility] Urine URINE / Unknown Collection / Unknown 01/16/2025 6:29 AM CDT 01/16/2025 6:41 AM CDT Narrative [facility] - 01/16/2025 7:22 AM CDT This is a presumptive/unconfirmed test for medical treatment purposes only. Clinical consideration and professional judgment should be applied when using presumptive results. If confirmatory testing, such as gas chromatography-mass spectrometry (GC/MS), of any positive results of this test is required, please notify the laboratory within 7 days of collection. This test is intended only for monitoring or management of patients. It is not intended for use in job-related and/or legal-related purposes. The cutoff value for each analyte is: Barbiturates.....200 ng/mL Benzodiazepines......150 ng/mL Cocaine..........150 ng/mL Opiates..............100 ng/mL Phencyclidine.....25 ng/mL Tricyclics...........300 ng/mL Cannabinoid.......50 ng/mL Amphetamines.........500 ng/mL Methadone........200 ng/mL Methamphetamines.....500 ng/mL Buprenorphine.....10 ng/mL Oxycodone............100 ng/mL us Abimael Munroe DO LAB - URINE CHEMISTRY ORDERA BLES Final Result [facility] [address] [place] [address], [facility] * (ABNORMAL) URINALYSIS REFLEX MICROSCOPIC REFLEX CULTURE (01/16/2025 6:29 AM CDT) Color UA Yellow Yellow, Straw 01/16/2025 7:02 AM CDT [facility] Clarity UA Clear Clear 01/16/2025 7:02 AM CDT [facility] Glucose UA Negative Negative 01/16/2025 7:02 AM CDT [facility] Bilirubin UA Negative Negative 01/16/2025 7:02 AM CDT [facility] Ketone UA 4+(A) Negative 01/16/2025 7:02 AM CDT [facility] Specific [place] UA 1.031(H) 1.005 - 1.030 01/16/2025 7:02 AM CDT [facility] Blood UA 2+(A) Negative 01/16/2025 7:02 AM CDT [facility] pH UA 6.5 5.0 - 8.0 pH 01/16/2025 7:02 AM CDT [facility] Protein UA 1+(A) Negative 01/16/2025 7:02 AM CDT [facility] Urobilinogen UA Normal Normal mg/dL 01/16/2025 7:02 AM CDT [facility] Nitrite UA Negative Negative 01/16/2025 7:02 AM CDT [facility] Leukocyte Esterase UA Negative Negative 01/16/2025 7:02 AM CDT [facility] RBC UA 3-5 0 - 5 # /hpf 01/16/2025 7:02 AM CDT [facility] WBC UA 0-5 0 - 5 # /hpf 01/16/2025 7:02 AM CDT [facility] Bacteria UA None Seen None Seen 01/16/2025 7:02 AM CDT [facility] Squamous Epithelial Cells 3-5 0 - 5 /hpf 01/16/2025 7:02 AM CDT [facility] Mucus UA 2+ /LPF 01/16/2025 7:02 AM CDT [facility] Reflex Status Culture not indicated 01/16/2025 7:02 AM CDT [facility] Urine URINE SPECIMEN OBTAINED BY CLEAN CATCH PROCEDURE / Unknown Collection / Unknown 01/16/2025 6:29 AM CDT 01/16/2025 6:41 AM CDT Abimael Munroe DO LAB - URINALYSIS ORDERABLES Final Result Performing Organization Address [facility] Co de Phone Number [facility] [address] * TSH REFLEX FREE T4 (01/16/2025 6:29 AM CDT) TSH 1.7328 0.35 - 4.94 uIU/mL 01/16/2025 7:28 AM CDT [facility] Comment:TSH Normal, Reflex F ree T4 Not Performed. Blood BLOOD SPECIMEN / Unknown Venipuncture / Unknown 01/16/2025 6:29 AM CDT 01/16/2025 6:41 AM CDT Abimael Munroe DO LAB - CHEMISTRY ORDERABLES F inal Result Performing Organization Address [facility] Co de Phone Number [facility] [address] * (ABNORMAL) PT-INR (01/16/2025 6:29 AM CDT) PT 13.9 11.3 - 14.8 sec 01/16/2025 7:01 AM CDT [facility] INR 1.07(L) 2 - 3 01/16/2025 7:01 AM CDT [facility] Blood BLOOD SPECIMEN / Unknown Venipuncture / Unknown 01/16/2025 6:29 AM CDT 01/16/2025 6:41 AM CDT [facility] - 01/16/2025 7:01 AM CDT Recommended therapeutic INR ranges for Oral Anticoagulant Therapy: 2.0-3.0 For prevention of Thrombosis or Embolism and treatment of Venous Thrombosis. 2.5- 3.5 for prevention of Recurrent Embolism or treatment of patients with Mechanical Prosthetic Heart Valves. us Abimael Munroe DO LAB - COAGULATION ORDERABLES Final Result Performing Organization Address City/State/[facility] Co de Phone Number [facility] [address] [place], [place] [address] * (ABNORMAL) CBC W AUTO DIFFERENTIAL (01/16/2025 6:29 AM CDT) [facility] WBC 11.1(H) 4.0 - 10.7 x10E9/L 01/16/2025 6:44 AM CDT [facility] RBC Count 4.67 3.90 - 5.20 x10E12/L 01/16/2025 6:44 AM CDT [facility] Hemoglobin 13.4 11.9 - 15.8 g/dL 01/16/2025 6:44 AM CDT [facility] Hematocrit 37.9 34.8 - 46.1 % 01/16/2025 6:44 AM CDT [facility] MCV 81.2 80.0 - 98.0 fL 01/16/2025 6:44 AM CDT [facility] MCH 28.7 26.7 - 33.6 pg 01/16/2025 6:44 AM CDT [facility] MCHC 35.4 31.7 - 36.3 g/dL 01/16/2025 6:44 AM CDT [facility] RDW-CV 12.7 11.3 - 14.8 % 01/16/2025 6:44 AM CDT [facility] Platelet Count 512(H) 150 - 420 x10E9/L 01/16/2025 6:44 AM CDT [facility] MPV 9.4 7.8 - 11.4 fL 01/16/2025 6:44 AM CDT [facility] Neutrophil % 87.6(H) 41.0 - 74.0 % 01/16/2025 6:44 AM CDT [facility] Lymphocyte % 8.4(L) 17.0 - 47.0 % 01/16/2025 6:44 AM CDT [facility] Monocyte % 3.4 3.0 - 11.0 % 01/16/2025 6:44 AM CDT [facility] Eosinophil % 0.0 0.0 - 7.0 % 01/16/2025 6:44 AM CDT [facility] Basophil % 0.2 0.0 - 1.6 % 01/16/2025 6:44 AM CDT [facility] Immature Granulocytes % 0.4 0.0 - 1.0 % 01/16/2025 6:44 AM CDT [facility] Neutrophil Absolute 9.75(H) 1.60 - 7.50 x10E9/L 01/16/2025 6:44 AM CDT [facility] Lymphocyte Absolute 0.94(L) 1.00 - 4.40 x10E9/L 01/16/2025 6:44 AM CDT [facility] Monocyte Absolute 0.38 0.15 - 1.00 x10E9/L 01/16/2025 6:44 AM CDT [facility] Eosinophil Absolute 0.00 0.00 - 0.60 x10E9/L 01/16/2025 6:44 AM CDT [facility] Basophil Absolute 0.02 0.00 - 0.13 x10E9/L 01/16/2025 6:44 AM CDT [facility] Blood BLOOD SPECIMEN / Unknown Venipuncture / Unknown 01/16/2025 6:29 AM CDT 01/16/2025 6:41 AM CDT us Abimael Munroe DO LAB - HEMATOLOGY ORDERABLES Final Result Performing Organization Address City/State/[facility] Co de Phone Number [facility] [address] [place] [address], [facility] * B-TYPE NATRIURETIC PEPTIDE (01/16/2025 6:29 AM CDT) Pathologist [facility] BNP 85 10 - 100 pg/mL 01/16/2025 7:38 AM [facility] Blood BLOOD SPECIMEN / Unknown Venipuncture / Unknown 01/16/2025 6:29 AM CDT 01/16/2025 6:41 AM CDT us Abimael Munroe DO LAB - CHEMISTRY ORDERABLES F inal Result [facility] [address] * (ABNORMAL) COMPREHENSIVE METABOLIC PANEL (01/16/2025 6:29 AM CDT) [facility] Glucose 124 70 - 125 mg/dL 01/16/2025 7:06 AM [facility] Sodium 141 136 - 145 mmol/L 01/16/2025 7:06 AM [facility] Potassium 3.5 3.4 - 5.1 mmol/L 01/16/2025 7:06 AM [facility] Chloride 108(H) 98 - 107 mmol/L 01/16/2025 7:06 AM [facility] CO2 19(L) 22 - 29 mmol/L 01/16/2025 7:06 AM [facility] Calcium 10.22(H) 8.4 - 10.2 mg/dL 01/16/2025 7:06 AM [facility] Anion Gap 14 6 - 16 mmol/L 01/16/2025 7:06 AM [facility] BUN 17.8 9.8 - 20.1 mg/dL 01/16/2025 7:06 AM [facility] Creatinine 0.79 0.57 - 1.11 mg/dL 01/16/2025 7:06 AM [facility] Alkaline Phosphatase 66 40 - 150 U/L 01/16/2025 7:06 AM [facility] ALT 12 7 - 30 U/L 01/16/2025 7:06 AM [facility] AST 25 5 - 34 U/L 01/16/2025 7:06 AM [facility] Protein Total 7.7 6.4 - 8.3 gm/dL 01/16/2025 7:06 AM CDT [facility] Albumin 4.7(H) 3.1 - 4.5 gm/dL 01/16/2025 7:06 AM CDT [facility] Globulin Total 3.0 2.6 - 4.0 gm/dL 01/16/2025 7:06 AM CDT [facility] Albumin/Globulin Ratio 1.6 0.9 - 1.6 01/16/2025 7:06 AM CDT [facility] Bilirubin Total 1.2 0.2 - 1.2 mg/dL 01/16/2025 7:06 AM CDT [facility] eGFR >90 >90 mL/min/1. 73m2 01/16/2025 7:06 AM CDT [facility] Comment:The GFR result was c alculated using the updated CKD-EPI Creatinine Equation (2020). Blood BLOOD SPECIMEN / Unknown Venipuncture / Unknown 01/16/2025 6:29 AM CDT 01/16/2025 6:41 AM CDT Abimael Munroe DO LAB - CHEMISTRY ORDERABLES F inal Result Performing Organization Address City/[facility]/ZIP Co de Phone Number [facility] [address] * MAGNESIUM BLOOD (01/16/2025 6:29 AM CDT) Magnesium 1.8 1.6 - 2.6 mg/dL 01/16/2025 7:06 AM CDT [facility] Blood BLOOD SPECIMEN / Unknown Venipuncture / Unknown 01/16/2025 6:29 AM CDT 01/16/2025 6:41 AM CDT Abimael Munroe DO LAB - CHEMISTRY ORDERABLES F inal Result [facility] [address] * LIPASE BLOOD (01/16/2025 6:29 AM CDT) Lipase 8 8 - 78 U/L 01/16/2025 7:06 AM CDT [facility] Blood BLOOD SPECIMEN / Unknown Venipuncture / Unknown 01/16/2025 6:29 AM CDT 01/16/2025 6:41 AM CDT Abimael Munroe DO LAB - CHEMISTRY ORDERABLES F inal Result [facility] [address] * ALCOHOL ETHYL BLOOD (01/16/2025 6:29 AM CDT) Pathologist [facility] Ethanol <10.0 <10 mg/dL 01/16/2025 7:10 AM CDT [facility] Blood BLOOD SPECIMEN / Unknown Venipuncture / Unknown 01/16/2025 6:29 AM CDT 01/16/2025 6:41 AM CDT Narrative [facility] - 01/16/2025 7:10 AM CDT For Medical Use Only Abimael Munroe DO LAB - CHEMISTRY ORDERABLES F inal Result [facility] [address] * HCG BLOOD QUALITATIVE (01/16/2025 6:29 AM CDT) Pathologist [facility] HCG Qual Serum Negative Negative 01/16/2025 7:34 AM CDT [facility] Blood BLOOD SPECIMEN / Unknown Venipuncture / Unknown 01/16/2025 6:29 AM CDT 01/16/2025 6:41 AM CDT Abimael Adrienne Amose DO LAB - CHEMISTRY ORDERABLES F inal Result [facility] [address] * HCG URINE QUALITATIVE - POCT (IP) BEAKER - ILL (01/16/2025 6:13 AM CDT) Pathologist [facility] HCG Qual Urine Negative Negative [facility] Lot # [id number] [facility] Expiration Date 05/10/2026 [facility] QC Verified Yes Yes [facility] P[facility] T TESTING Urine URINE / Unknown 01/16/2025 6 :13 AM CDT us Abimael Munroe DO LAB - POINT OF CARE ORDERABL ES Final Result Performing Organization Address City/[facility] Co de Phone Number [facility] [address] * EKG 12-LEAD (01/16/2025 6:12 AM CDT) Ventricular Rate 87 BPM [facility] Atrial Rate 87 BPM [facility] P-R Interval 102 ms [facility] QRS Duration ms 78 ms [facility] Q-T Interval ms 404 ms [facility] QTC Calculation (Bezet) 486 ms [facility] Calculated P Edison 69 degrees [facility] Calculated R [place] 78 degrees [facility] Calculated T [place] 38 degrees [facility] Interpretation EKG Sinus rhythm with marked sinus arrhythmia with short SD Poor data quality, interpretation may be adversely affected Otherwise normal ECG When compared with ECG of 06-OCT-2021 10:31, ST now depressed in Inferior leads Nonspecific T wave abnormality now evident in Anterolateral leads QT has lengthened Confirmed by MD JOHNNY, [facility] ([id number]) on 01/17/2025 4:17:44 PM [facility] 01/16/2025 6:12 AM CDT 01/17/2025 4:17 PM CDT us Abimael Munroe DO ECG ORDERABLES Edited Resul t - Final Performing Organization Address City/[facility]/ZIP Co de Phone Number [facility] from Last 3 Months Insurance MEDICAID - [place] * Guarantor: E-SCREEN,SOIL Account Type Relation to Patient Date of Phone Billing Address Company Employer [employer] [address] Advance Directives * Full Code (Latest Code Status on File) Date Activated Date Inactivated Comments 10/06/2021 6:42 PM 10/09/2021 12:44 PM Care Teams [employer] Relationship Specialty Start Date End Date Cecelia Elaine MD [address] [place] [address] PCP - General Family Medicine 02/23/23
--- OUTSIDE RECORDS SUMMARY | 2025-02-13 22:06 | XMS_ITS | Encounter Summary ---
Author Organization [facility] Address [address] [place] [address] Care Team Providers Care Route Salesman And Driver Name Role Phone Cecelia Elaine MD Primary Care Provider [phone] Reason for Visit * Reason Onset Date Comments Scheduling 01/13/2023 Encounter Details Date Type Department Care Team (Late st Contact Info) Description 01/13/2023 Telephone [facility] [address], [place] [id number] Rogelio Mg MD [address] [facility] [address], [place] [id number] Scheduling Social History Tobacco Use Types Packs/Day Years Used Date Smoking Tobacco: Never Smokeless Tobacco: Never Alcohol Use Standard Drinks/Week Comments No 0 (1 standard drink = 0.6 oz pur e alcohol) AUDIT-C Answer Date Recorded Q1: How often do you have a drink containing alc ohol? Never 10/06/2021 Average Number of Drinks Not on file 022 Frequency of Binge Drinking Not on file 09/18 Comments No Sex and Gender Information Value Date Recorded Sex Assigned at Not on file Legal Sex Female 10:26 AM [employer] Gender Identity Not on file Sexual Orientation Not on file documented as of this encounter Functional Status * Is person deaf or have serious hearing difficulty? Answer Date of Assessment Author No 10/09/2021 10:22 AM Yue Holland RN * Is person blind or have serious difficulty seeing? Answer Date of Assessment Author No 10/09/2021 10:22 AM Yue Holland RN * Does person have serious difficulty walking/climbing stairs? Answer Date of Assessment Author No 10/09/2021 10:22 AM Yue Holland RN * Does person have difficulty dressing/bathing? Answer Date of Assessment Author No 10/09/2021 10:22 AM Yue Holland RN * Does person have difficulty doing errands alone? Answer Date of Assessment Author No 10/09/2021 10:22 AM Yue Holland RN documented as of this encounter Mental Status * Does person have difficulty concentrating/remembering/making decisions? Answer Entry Date Author No 10/09/2021 10:22 AM Yue Holland RN documented in this encounter Miscellaneous Notes * Telephone Encounter - Carolina Neri - 02/11/2023 11:33 AM CDT Called to schedule from [facility] waitlist, left a vm Final attempt, mailing letter * Telephone Encounter - Carolina Neri - 01/13/2023 3:14 PM CDT Called pt to offer an appt from GI wait list, left a vm documented in this encounter Plan of Treatment Not on file documented as of this encounter Visit Diagnoses Not on filedocumented in this encounter Care Teams Route Salesman And Driver Relationship Specialty Start Date End Date Cecelia Elaine MD [address] [place] [address] PCP - General Family Medicine 02/23/23 documented as of this encounter
[2025-02-13] MEDS: PROMETHAZINE HCL 25 MG SUPP.RECT RECTAL (22:24)
[2025-02-13 22:30] VITALS: BP 126/72; PULSE 80; RESP 18; TEMP 36.6; O2SAT 97
== END 2025-02-13 22:31 | disposition home or self-care (01) ==
PROVIDERS: Emergency Provider Emergency Medicine
DX: G43.A1 Cyclical vomiting, in migraine, intractable (principal)
CPT/HCPCS: 36415; 80053; 85025; 96374; 96375; 99284; A9270; J1200; J2060; J2765; J7030